=== PATIENT | male | born 1980 | race Caucasian/White ===

== ENCOUNTER 2021-05-05 10:20 | Emergency (ER) | payer MEDICAID ==
--- NOTE | 2021-05-05 11:43 | EDM.PDOC ---
ED HPI GENERAL MEDICAL PROBLEM - General Chief Complaint: Chest Pain Stated Complaint: CHEST PAINS Time Seen by Provider: 05/05/21 11:05 Source of Information: Reports: Patient, Family, RN Notes Reviewed History Limitations: Reports: No Limitations - History of Present Illness INITIAL COMMENTS - FREE TEXT/NARRATIVE: Vince presents today with complaints of left sided chest, pectoral area pain for 12 months that has worsened the past 3 months. He states the pain now radiates up to his left shoulder and to his left rib, left upper abdominal areas. He states the pain worsens as the day goes on. 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 He denies any injury/trauma at onset of pain. He denies use of any OTC medications or treatments for the pain. He denies anything making the pain worse or better. He reports pain happens at rest and with activity. He denies cough, fever, chills, nausea, vomiting, change in bowel/bladder or other concerns. He reports use of 1 to 2 cans chewing tobacco the past 15 years. He reports use of alcohol, captain rosalie and beer 3 to 4 times per week. He reports he does not have a primary provider. Left Chest Pain Score (Numeric/FACES): 5 - Related Data Allergies Allergy/AdvReac Type Severity Reaction Status Date / Time No Known Allergies Allergy Verified 05/05/21 10:42 Home Meds: Home Meds NK [No Known Home Meds] 05/05/21 [History] Past Medical History - Past Health History Medical/Surgical History: Denies Medical/Surgical History Social & Family History - Tobacco Use Tobacco Use Status *Q: Never Tobacco User - Caffeine Use Caffeine Use: Reports: Tea - Recreational Drug Use Recreational Drug Use: No ED ROS GENERAL - Review of Systems Review Of Systems: See Below Constitutional: Reports: No Symptoms HEENT: Reports: No Symptoms Respiratory: Reports: Pleuritic Chest Pain. Denies: Shortness of Breath, Wheezing, Cough, Sputum, Hemoptysis Cardiovascular: Reports: Chest Pain, Blood Pressure Problem. Denies: Claudication, Dyspnea on Exertion, Edema, Lightheadedness, Orthopnea, Palpitations, PND, Syncope Endocrine: Reports: No Symptoms GI/Abdominal: Reports: No Symptoms : Reports: No Symptoms Musculoskeletal: Reports: Shoulder Pain, Other (left upper chest pain radiating to left shoulder - worse as day goes on) Skin: Reports: No Symptoms Neurological: Reports: No Symptoms Psychiatric: Reports: No Symptoms Hematologic/Lymphatic: Reports: No Symptoms Immunologic: Reports: No Symptoms ED EXAM, GENERAL - Physical Exam Exam: See Below Free Text/Narrative:: Vince is an alert and oriented 40 year old 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 He denies any acute onset, aggravating or mitigating factors. He has not tried any OTC medications or treatments at this time. He does have a family history fo cardia disease, has chewed tobacco daily for the past 15 years and drinks alcohol frequently. Exam Limited By: No Limitations General Appearance: Alert, WD/WN, No Apparent Distress Eye Exam: Bilateral Eye: Normal Inspection, PERRL Ears: Normal External Exam, Normal Canal, Hearing Grossly Normal, Normal TMs Ear Exam: Right Ear: Other (Small amount of cerumen present) Nose: Normal Inspection, Normal Mucosa, No Blood Throat/Mouth: Normal Inspection, Normal Lips, Normal Teeth, Normal Gums, Normal Oropharynx, Normal Voice, No Airway Compromise Head: Atraumatic, Normocephalic Neck: Normal Inspection, Supple, Non-Tender, Full Range of Motion. No: Lymphadenopathy (R), Lymphadenopathy (L) Respiratory/Chest: No Respiratory Distress, Lungs Clear, Normal Breath Sounds, No Accessory Muscle Use, Chest Non-Tender. No: Crackles, Rales, Rhonchi, Wheezing, Accessory Muscle Use, Retractions, Splinting Cardiovascular: Normal Peripheral Pulses, Regular Rate, Rhythm, No Edema, No Gallop, No Murmur, No Rub, Other (No tenderness with palpation to chest, ribs) Peripheral Pulses: 4+: Radial (L), Radial (R), Dorsalis Pedis (L), Dorsalis Pedis (R) GI/Abdominal: Normal Bowel Sounds, Soft, No Organomegaly, No Distention, No Abnormal Bruit, No Mass, Pelvis Stable, Tender (slight tenderness to LUQ and epigastric areas with palpation). No: Guarding, Rigid, Rebound (Male) Exam: Deferred Rectal (Males) Exam: Deferred Back Exam: Normal Inspection, Full Range of Motion. No: CVA Tenderness (R), CVA Tenderness (L) Extremities: Normal Inspection, Normal Range of Motion, Non-Tender, No Pedal Edema, Normal Capillary Refill Neurological: Alert, Oriented, CN II-XII Intact, Normal Cognition, Normal Gait, Normal Reflexes, No Motor/Sensory Deficits Psychiatric: Normal Affect, Normal Mood Skin Exam: Warm, Dry, Intact, Normal Color, No Rash Lymphatic: No Adenopathy #1 Interpretation EKG Date: 05/05/21 Time: 11:36 Rhythm: NSR Rate (Beats/Min): 70 [place]: Normal P-Wave: Present QRS: Normal ST-T: Normal QT: Normal Comparison: NA - No Prior EKG Course - Vital Signs Last Recorded V/S: Last Vital Signs Temp 36.6 C 05/05/21 10:35 Pulse 71 05/05/21 13:30 Resp 18 05/05/21 13:30 BP 136/89 05/05/21 13:40 Pulse Ox 97 05/05/21 13:30 - Orders/Labs/Meds Labs: Laboratory Tests 05/05/21 05/05/21 05/05/21 Range/Units 11:35 11:35 11:35 WBC 7.9 (4.5-11.0) K/uL RBC 4.85 (4.30-5.90) M/uL Hgb 14.0 (12.0-15.0) g/dL Hct 41.8 (40.0-54.0) % MCV 86 (80-98) fL MCH 29 (27-31) pg MCHC 34 (32-36) % Plt Count 316 (150-400) K/uL Neut % (Auto) 69.7 H (36-66) % Lymph % (Auto) 14.7 L (24-44) % [place] % (Auto) 11.8 H (2-6) % Eos % (Auto) 3.3 (2-4) % Baso % (Auto) 0.5 (0-1) % D-Dimer, Quantitative 186.82 (0.0-500.0) ng/mL Sodium 137 L (140-148) mmol/L Potassium 4.0 (3.6-5.2) mmol/L Chloride 104 (100-108) mmol/L Carbon Dioxide 25 (21-32) mmol/L Anion Gap 12.0 (5.0-14.0) mmol/L BUN 15 (7-18) mg/dL Creatinine 1.1 (0.8-1.3) mg/dL Est Cr Clr Drug Dosing 92.17 mL/min Estimated GFR (MDRD) > 60 (>60) Glucose 103 (74-106) mg/dL Calcium 8.4 L (8.5-10.1) mg/dL Total Bilirubin 0.3 (0.2-1.0) mg/dL AST 35 (15-37) U/L ALT 35 (12-78) U/L Alkaline Phosphatase 103 (46-116) U/L Troponin I < 0.017 (0.000-0.056) ng/mL Total Protein 6.5 (6.4-8.2) g/dL Albumin 3.2 L (3.4-5.0) g/dL Globulin 3.3 (2.3-3.5) g/dL Albumin/Globulin Ratio 1.0 L (1.2-2.2) Amylase 53 (25-115) U/L Lipase 157 (73-393) U/L No acute findings noted with lab work, we will complete CT. Meds: Medications Discontinued Medications Generic Name Dose Route Start Last Admin Trade Name Freq PRN Reason Stop Dose Admin Ketorolac Tromethamine 30 mg 05/05/21 13:27 05/05/21 13:38 Ketorolac 30 Mg/Ml Sdv IM 05/05/21 13:28 30 mg ONETIME ONE Administration Lisinopril 10 mg 05/05/21 13:26 05/05/21 13:40 Lisinopril 10 Mg Tab PO 05/05/21 13:27 10 mg ONETIME ONE Administration Improvement of pain at discharge after toradol. Reviewed lab work, CT scan with patient and his , all their questions were answered. They are in agreement with plan. - Radiology Interpretation Free Text/Narrative:: CT chest, abdomen and pelvis without contrast shows: 1. No acute findings in the chest, abdomen, or pelvis on this noncontrast exam. 2. 2 mm noncalcified pulmonary nodule in the right upper lobe. Please see follow-up guidelines below. 3. Small nonobstructing left renal caliceal stone. 4. Probable very mild mesenteric panniculitis in the upper abdomen. CT Results Date: 05/05/21 Departure - Departure Time of Disposition: 14:19 Disposition: Home, Self-Care 01 Condition: Good Clinical Impression: Mesenteric panniculitis, Hypertension, Tobacco chew use, Nonspecific chest pain Instructions: Nonspecific Chest Pain, Adult, [id number], Hypertension, Adult, [id number] Referrals: PCP,None [Primary Care Provider] - Forms: ED Department Discharge Additional Instructions: You have been evaluated and treated for abdominal pain with radiation to the left shoulder/rib/left chest areas. Cardiac work up is negative for any acute findings. Hypertension Tobacco use - chewing CT of abdomen/chest/pelvis shows mesenteric panniculitis, 2mm nodule to right lung, nonobstructing stone to left kidney. Mesenteric panniculitis as a definite diagnosis would need to be biopsied. The best care for you would be to obtain a primary provider for further management and care. Article on findings, management, care provided on mesenteric panniculitis. Take meloxicam 15mg by mouth once a day with food for pain. You can also take acetaminophen as needed for pain. Work on cutting down and stopping use of tobacco. Work on cutting down use of alcohol. Work on diet and exercise to decrease body adipose tissue(fat). Have a repeat chest CT to monitor 2mm nodule of right lung in 12 months. Return at any time for worsening, severe pain, issues or concerns. Sepsis Event Note (ED) - Focused Exam Vital Signs: Vital Signs Temp Pulse Resp BP BP Pulse Ox 05/05/21 13:40 136/89 05/05/21 13:30 71 18 135/97 H 97 05/05/21 10:35 36.6 C 80 14 170/95 H 97 - Assessment/Plan Assessment:: Mesenteric panniculitis, Hypertension, Tobacco chew use, Nonspecific chest pain Patient advised for best care he will need to establish with a primary provider in the next 7 to 14 days. He will want to decrease and stop use of tobacco and alcohol. Monitor blood pressure and follow up with repeat CT scan of chest in 12 months for 2mm nodule as reviewed. Patient and his verbalized understanding. Plan: Patient evaluated and treated for abdominal pain with radiation to the left shoulder/rib/left chest areas. Cardiac work up is negative for any acute findings. Hypertension Tobacco use - chewing CT of abdomen/chest/pelvis shows mesenteric panniculitis, 2mm nodule to right lung, nonobstructing stone to left kidney. Mesenteric panniculitis as a definite diagnosis would need to be biopsied. The best care for patient would be to obtain a primary provider for further management and care. Evidence based information on findings, management, care provided on mesenteric panniculitis. Take meloxicam 15mg by mouth once a day with food for pain. He can take acetaminophen as needed for pain. Work on cutting down and stopping use of tobacco. Work on cutting down use of alcohol. Work on diet and exercise to decrease body adipose tissue(fat). Have a repeat chest CT to monitor 2mm nodule of right lung in 12 months. Return at any time for worsening, severe pain, issues or concerns.
[2021-05-05] MEDS ORDERED: Lisinopril 10 MG Tab PO ONE (13:26)
[2021-05-05] MEDS ORDERED: Ketorolac 30 MG/ML SDV IM ONE (13:27)
--- NOTE | 2021-05-05 13:30 | CRLCT ---
For Patients: As a result of the 21st Century Cures Act, medical imaging exams and procedure reports are released immediately into your electronic medical record. You may view this report before your referring provider. If you have questions, please contact your health care provider. INDICATION: Left chest and upper abdominal pain. TECHNIQUE: CT of the chest, abdomen, and pelvis without IV contrast. Coronal and sagittal reconstructions. COMPARISON: None. FINDINGS: Chest: Normal heart size. Normal caliber thoracic aorta and central pulmonary arteries. No pericardial effusion. No thoracic lymphadenopathy. The thyroid gland is normal in appearance. No focal consolidation, pleural effusion, or pneumothorax. 2 mm noncalcified pleural-based pulmonary nodule in the lateral right upper lobe (series 3, image 30). No central endobronchial lesion or bronchial wall thickening. The bones are unremarkable. No acute fracture identified. Abdomen/pelvis: The unenhanced liver, gallbladder, spleen, pancreas, and adrenal glands are normal in appearance. No biliary dilation. No hydronephrosis or ureteral dilation. No obstructing urinary calculi. Small nonobstructing left renal caliceal stone. Left pelvic phleboliths. The unenhanced bladder and prostate gland are normal in appearance. No bowel dilation. Negative appendix. No intraperitoneal free air or fluid. There is subtle mesenteric haziness in the midline and left upper abdomen with multiple small mesenteric lymph nodes (series 2 images 110-123). This could represent very mild mesenteric panniculitis. No lymphadenopathy by size criteria. Mild degenerative changes at L5-S1. No acute fracture identified. IMPRESSION: 1. No acute findings in the chest, abdomen, or pelvis on this noncontrast exam. 2. 2 mm noncalcified pulmonary nodule in the right upper lobe. Please see follow-up guidelines below. 3. Small nonobstructing left renal caliceal stone. 4. Probable very mild mesenteric panniculitis in the upper abdomen. [employer] GUID[employer] - SOLID NODULES: : SINGLE LOW RISK - nodule less than 6 mm: No routine follow-up. - nodule 6-8 mm: CT at 6-12 months, then consider CT at 18-24 months. - nodule greater than 8 mm: Consider CT at 3 months, PET/CT or tissue sampling. SINGLE HIGH RISK - nodule less than 6 mm: Optional CT at 12 months. - nodule 6-8 mm: CT at 6-12 months, then CT at 18-24 months. - nodule greater than 8 mm: Consider CT at 3 months, PET/CT or tissue sampling. Please note that all CT scans at this facility use dose modulation, iterative reconstruction, and/or weight-based dosing when appropriate to reduce radiation dose to as low as reasonably achievable. Dictated by Lorri Martinez MD @ 05/05/2021 1:28:17 PM (Electronically Signed)
== END 2021-05-05 14:33 | disposition home or self-care (01) ==
LOC: JP.ED 10:20
DX: R07.9 Chest pain, unspecified (principal); K65.4 Sclerosing mesenteritis; I10 Essential (primary) hypertension; F17.210 Nicotine dependence, cigarettes, uncomplicated
CPT/HCPCS: 36415; 71250; 74176; 80053; 82150; 83690; 84484; 85025; 85379; 93005; 96372; 99285; A9270; J1885

== ENCOUNTER 2023-07-13 17:32 | Emergency (ER) | payer MEDICAID ==
[2023-07-13] MEDS ORDERED: Diphtheria,Pertussis(Acell),Tetanus Vaccine 0.5 ML Syringe IM ONE (17:53)
[2023-07-13] MEDS ORDERED: Lidocaine 1% 5 ML VIAL INJECT ONE (17:53)
[2023-07-13] MEDS ORDERED: Bacitracin Oint 1 GM U/D Packet TOP ONE (17:53)
== END 2023-07-13 18:41 | disposition home or self-care (01) ==
LOC: JP.ED 17:32
DX: S61.212A Laceration without foreign body of right middle finger without damage to nail, initial encounter (principal); Z23 Encounter for immunization; F17.210 Nicotine dependence, cigarettes, uncomplicated; W23.0XXA Caught, crushed, jammed, or pinched between moving objects, initial encounter
CPT/HCPCS: 12002; 73140-26-F7; 73140-F7; 90471; 90715; 99283; 99283-25